=== PATIENT | male | born 1985 | race Caucasian/White ===

== ENCOUNTER 2018-12-03 08:31 | Emergency (ER) | payer OTHER ==
[2018-12-03 08:37] VITALS: BP 133/89; PULSE 84; RESP 18; TEMP 97.4
--- NOTE | 2018-12-03 08:47 | ED ---
Skin/Abscess/FB HPI - General Chief complaint: Skin/Abscess/Foreign Body Stated complaint: Poss Spider Bite Time Seen by Provider: 12/03/18 08:40 Source: patient Mode of arrival: ambulatory Limitations: no limitations - History of Present Illness Initial comments: 33-year-old male presenting for possible spider bite of the left ring finger. Patient states that yesterday he woke up with a appeared is insect bite of the left ring finger. He states are 2 small vasquez. He was concerned this was a spider. Patient states it has been appearing more red is concerned is infected. She denies any fusiform swelling denies any forced flexed positioning, pain on the palm or dorsum of hand, fevers, flu like symptoms. Patient states he is able to range at the digit without pain out of proportion. Patient denies history of MRSA. Remaining review of systems negative upon arrival patient appears well nontoxic no acute distress. - Related Data Previous Rx's Medication Instructions Recorded Azithromycin [Zithromax Tri-Giuseppe] 500 mg PO DAILY #3 tab 04/27/14 Cephalexin [Keflex] 500 mg PO Q6HR 7 Days #28 cap 12/03/18 Sulfamethox-Tmp 800-160Mg [Bactrim 1 tab PO Q12HR 7 Days #14 tab 12/03/18 DS 800-160 mg] Allergies Allergy/AdvReac Type Severity Reaction Status Date / Time No Known Allergies Allergy Verified 12/03/18 08:37 Review of Systems ROS Statement: Those systems with pertinent positive or pertinent negative responses have been documented in the HPI. ROS Other: All systems not noted in ROS Statement are negative. Past Medical History Past Medical History: No Reported History History of Any Multi-Drug Resistant Organisms: None Reported Additional Past Surgical History / Comment(s): left foot cyst removed Past Psychological History: No Psychological Hx Reported Smoking Status: Current every day smoker Past Alcohol Use History: Rare Past Drug Use History: Marijuana General Exam - General Exam Comments Initial Comments: General: The patient is awake and alert, in no distress, and does not appear acutely ill. Eye: Pupils are equal, round and reactive to light, extra-ocular movements are intact. No nystagmus. There is normal conjunctiva bilaterally. No signs of icterus. Cardiovascular: There is a regular rate and rhythm. No murmur, rub or gallop is appreciated. Respiratory: Lungs are clear to auscultation, respirations are non-labored, breath sounds are equal. No wheezes, stridor, rales, or rhonchi. Musculoskeletal: Upon inspection of the hands bilaterally there is small break in the skin with 2 small abrasions of the left ring finger proximal to the PIP joint. Mild surrounding redness. Tenderness in the area abscess no fusiform swelling was noted no force flexed positioning. Patient is able to extend and flex the digit without pain out of proportion. Discomfort when palpating the area of redness Strength 5/5. Sensation intact. Radial pulses equal bilaterally 2+. Neurological: A&O x 3. CN II-XII intact, There are no obvious motor or sensory deficits. Coordination appears grossly intact. Speech is normal. Skin: Skin is warm and dry and no rashes or lesions are noted. Psychiatric: Cooperative, appropriate mood & affect, normal judgment. Limitations: no limitations Course Vital Signs 12/03/18 08:35 Temperature 97.4 F L Pulse Rate 84 Respiratory 18 Rate Blood Pressure 133/89 O2 Sat by Pulse 99 Oximetry Medical Decision Making - Medical Decision Making 33-year-old male presents today for chief complaint of insect bite. No signs of purulent flexor tenosynovitis. There is evidence of possible developing cellulitis versus local reaction. Patient was given a prescription for Keflex instructed to take medication as directed. He was told to monitor the redness and we discussed the signs of tenosynovitis. Patient verbalized understanding importance of return parameters as well as adherence antibiotic regimen. Patient was discharged. Barry discussed the case with her provider Dr. Dolan Disposition Clinical Impression: Insect bite, Finger pain, left Disposition: HOME SELF-CARE Condition: Good Instructions (If sedation given, give patient instructions): Cellulitis (ED), Insect Bite or Sting (ED) Additional Instructions: Please use medication as discussed. Please follow-up with family doctor in the next 2 days of symptoms have not improved. Please return to emergency room if the symptoms increase or worsen or for any other concerns--increasing spreading of redness, sausage like finger and inability flex and extend finger fevers or flulike symptoms as discussed Prescriptions: Sulfamethox-Tmp 800-160Mg [Bactrim DS 800-160 mg] 1 tab PO Q12HR 7 Days #14 tab Cephalexin [Keflex] 500 mg PO Q6HR 7 Days #28 cap Is patient prescribed a controlled substance at d/c from ED?: No Referrals: Eric Valdez MD [STAFF PHYSICIAN] - 1-2 days Time of Disposition: 08:47
[2018-12-03] MEDS ORDERED: SULFAMETH-TMP DS STARTER PACK 2 TAB BTL PO STA (08:48)
[2018-12-03] MEDS ORDERED: CEPHALEXIN 500MG STARTER PACK 4 CAP BTL PO STA (08:48)
== END 2018-12-03 09:16 | disposition home or self-care (01) ==
LOC: EC 08:31
DX: S60.465A Insect bite (nonvenomous) of left ring finger, initial encounter (principal); S60.415A Abrasion of left ring finger, initial encounter; F17.200 Nicotine dependence, unspecified, uncomplicated; W57.XXXA Bitten or stung by nonvenomous insect and other nonvenomous arthropods, initial encounter
CPT/HCPCS: 99281

== ENCOUNTER 2020-01-19 13:32 | Emergency (ER) | payer OTHER ==
[2020-01-19 13:36] VITALS: BP 133/76; PULSE 65; RESP 18; TEMP 98.1
--- NOTE | 2020-01-19 14:15 | ED ---
General Adult HPI - General Chief complaint: Skin/Abscess/Foreign Body Stated complaint: Left hand swelling Time Seen by Provider: 01/19/20 13:55 Source: patient, RN notes reviewed, old records reviewed Mode of arrival: ambulatory Limitations: no limitations - History of Present Illness Initial comments: Patient is a 34-year-old male presents for short stay with chronic rash over bilateral hands. He reports this happened since he is 17. He reports that 2 days ago he noticed some swelling and a pimple formation on the left index finger. Patient reports that he popped this and clear fluid was removed. He reports some increased swelling and redness of the proximal joint at this time. Patient reports he's had this in the past and has been treated with antibiotics. Patient reports that he has had no recent fevers or chills. He does report full range of motion of the finger at this time. - Related Data Previous Rx's Medication Instructions Recorded Azithromycin [Zithromax Tri-Giuseppe] 500 mg PO DAILY #3 tab 04/27/14 Cephalexin [Keflex] 500 mg PO Q6HR 7 Days #28 cap 12/03/18 Sulfamethox-Tmp 800-160Mg [Bactrim 1 tab PO Q12HR 7 Days #14 tab 12/03/18 DS 800-160 mg] Cephalexin [Keflex] 500 mg PO Q6HR 10 Days #40 cap 01/19/20 Hydrocortisone [Hydrocortisone 1 applic TOPICAL DAILY #60 gram 01/19/20 0.5% Cream] Allergies Allergy/AdvReac Type Severity Reaction Status Date / Time codeine Allergy Itching Verified 01/19/20 13:36 Review of Systems ROS Statement: Those systems with pertinent positive or pertinent negative responses have been documented in the HPI. ROS Other: All systems not noted in ROS Statement are negative. Past Medical History Past Medical History: No Reported History History of Any Multi-Drug Resistant Organisms: None Reported Additional Past Surgical History / Comment(s): left foot cyst removed Past Psychological History: No Psychological Hx Reported Smoking Status: Current every day smoker Past Alcohol Use History: Rare Past Drug Use History: Marijuana General Exam - General Exam Comments Initial Comments: Alert and oriented 34-year-old male. No distress. Limitations: no limitations General appearance: alert, in no apparent distress Head exam: Present: atraumatic, normocephalic, normal inspection Eye exam: Present: normal appearance, PERRL, EOMI. Absent: scleral icterus, conjunctival injection, periorbital swelling ENT exam: Present: normal exam, mucous membranes moist Neck exam: Present: normal inspection. Absent: tenderness, meningismus, lymphadenopathy Respiratory exam: Present: normal lung sounds bilaterally. Absent: respiratory distress, wheezes, rales, rhonchi, stridor Cardiovascular Exam: Present: regular rate, normal rhythm, normal heart sounds. Absent: systolic murmur, diastolic murmur, rubs, gallop, clicks GI/Abdominal exam: Present: soft, normal bowel sounds. Absent: distended, tenderness, guarding, rebound, rigid Extremities exam: Present: normal inspection Left Upper Arm exam: Present: normal inspection, full ROM Elbow exam: Present: normal inspection, full ROM Forearm Wrist exam: Present: normal inspection, full ROM Hand Wrist exam: Present: tenderness (Patient has scaly rash over her palms of bilateral hands. Patient has some tenderness and swelling over the PIP of the left index..). Absent: normal inspection Neuro motor exam: Present: wrist extension intact, thumb opposition intact, thumb IP flexion intact, thumb adduction intact Back exam: Present: normal inspection Neurological exam: Present: alert, oriented X3, CN II-XII intact Course Vital Signs 01/19/20 13:34 Temperature 98.1 F Pulse Rate 65 Respiratory 18 Rate Blood Pressure 133/76 O2 Sat by Pulse 98 Oximetry Medical Decision Making - Medical Decision Making 34-year-old male presents with left index finger pain and swelling of bilateral rash over his hand. The Patient index finger pain and swelling for the past 2 days. Patient's has full range of motion is time. Discussed return at this time for drainage of no palpable fluctuant abscess as well as her for tenosynovitis. Discusses could develop into return if there is any severe pain with range of motion worsening redness swelling. We'll put the Patient on antibiotic of Keflex. I discussed also using a steroid cream over the chronic flaky scaly rash over bilateral palms of his hands consistent with likely psoriasis or eczema. Disposition Clinical Impression: Swelling of finger joint of left hand Disposition: HOME SELF-CARE Condition: Good Instructions (If sedation given, give patient instructions): Abscess (ED) Additional Instructions: Take the antibiotic as prescribed. Also recommended using the steroid cream over the irritated skin on bilateral hands. Patient can follow-up with a distribution associate and hand specialist. Return if there is any worsening pain with range of motion or redness and swelling to the finger after 2 days of antibiotic. Prescriptions: Hydrocortisone [Hydrocortisone 0.5% Cream] 1 applic TOPICAL DAILY #60 gram Cephalexin [Keflex] 500 mg PO Q6HR 10 Days #40 cap Is patient prescribed a controlled substance at d/c from ED?: No Referrals: Eric Valdez MD [Primary Care Provider] - 1-2 days Time of Disposition: 14:14
== END 2020-01-19 14:40 | disposition home or self-care (01) ==
LOC: EC 13:32
DX: M79.89 Other specified soft tissue disorders (principal); R21 Rash and other nonspecific skin eruption; F17.200 Nicotine dependence, unspecified, uncomplicated; Z88.5 Allergy status to narcotic agent
CPT/HCPCS: 99283

== ENCOUNTER 2020-02-03 11:30 | Emergency (ER) | payer OTHER ==
[2020-02-03 11:39] VITALS: TEMP 97.8
[2020-02-03] MEDS ORDERED: IBUPROFEN 600 MG TAB PO STA (12:11)
[2020-02-03] MEDS ORDERED: HYDROcodone/APAP 5-325MG 1 EACH TAB PO STA (12:11)
--- NOTE | 2020-02-03 12:56 | ED ---
Extremity Problem HPI - General Chief complaint: Extremity Problem,Nontraumatic Stated complaint: Knee pain Time Seen by Provider: 02/03/20 11:52 Source: patient, RN notes reviewed Mode of arrival: ambulatory Limitations: no limitations - History of Present Illness Initial comments: this a 34-year-old male presents emergency from chief complaint of left knee left foot pain. Patient states that he walked extensive amount yesterday states he woke up with increased swelling, pain. He has not taken anything for the discomfort. Patient states that he had prior surgery on his left foot for a cyst removal. Patient states that his pain is better at rest is with any movement. Denies any known injury no trauma no fevers or chills no erythema. - Related Data Previous Rx's Medication Instructions Recorded Ibuprofen [Motrin] 600 mg PO Q8HR PRN #20 tab 02/03/20 Allergies Allergy/AdvReac Type Severity Reaction Status Date / Time codeine Allergy Itching Verified 02/03/20 13:47 Review of Systems ROS Statement: Those systems with pertinent positive or pertinent negative responses have been documented in the HPI. ROS Other: All systems not noted in ROS Statement are negative. Past Medical History Past Medical History: No Reported History History of Any Multi-Drug Resistant Organisms: None Reported Additional Past Surgical History / Comment(s): left foot cyst removed Past Psychological History: No Psychological Hx Reported Smoking Status: Current every day smoker Past Alcohol Use History: Rare Past Drug Use History: Marijuana General Exam Limitations: no limitations General appearance: alert, in no apparent distress Head exam: Present: atraumatic, normocephalic, normal inspection Respiratory exam: Present: normal lung sounds bilaterally. Absent: respiratory distress, wheezes, rales, rhonchi, stridor Cardiovascular Exam: Present: regular rate, normal rhythm, normal heart sounds. Absent: systolic murmur, diastolic murmur, rubs, gallop, clicks Extremities exam: Present: other (left knee there is no erythema, swelling there is mild pain with range of motion no localized tenderness, no tib-fib tenderness there is proximal foot tenderness and swelling noted there is old surgical scar noted neurovascular intact) Neurological exam: Present: reflexes normal. Absent: motor sensory deficit Course Vital Signs 02/03/20 11:37 Temperature 97.8 F Pulse Rate 73 Respiratory 18 Rate Blood Pressure 122/73 O2 Sat by Pulse 98 Oximetry Medical Decision Making - Medical Decision Making x-rays reviewed no acute fracture. Patient has left foot tendinitis. Patient discharged in stable condition with anti-inflammatories return parameters were discussed. Disposition Clinical Impression: Tendinitis of left foot, Left knee pain Disposition: HOME SELF-CARE Condition: Stable Instructions (If sedation given, give patient instructions): Tendinitis (ED) Additional Instructions: Please return to the Emergency Department if symptoms worsen or any other concerns. Prescriptions: Ibuprofen [Motrin] 600 mg PO Q8HR PRN #20 tab PRN Reason: Pain Is patient prescribed a controlled substance at d/c from ED?: No Referrals: Eric Valdez MD [Primary Care Provider] - 1-2 days Time of Disposition: 13:50
--- NOTE | 2020-02-03 13:10 | XR ---
EXAMINATION TYPE: XR knee complete LT DATE OF EXAM: 02/03/2020 CLINICAL HISTORY: Pain after excessive walking. TECHNIQUE: Three views of the left knee are obtained. COMPARISON: None. FINDINGS: There is no acute fracture/dislocation evident in the knee. The tri-compartment joint spa arnulfo appear within normal limits. The overlying soft tissue appears unremarkable. IMPRESSION: As above.
--- NOTE | 2020-02-03 13:11 | XR ---
EXAMINATION TYPE: XR foot complete LT DATE OF EXAM: 02/03/2020 CLINICAL HISTORY: Pain after walking a lot yesterday. TECHNIQUE: Frontal, lateral, and oblique images of the left foot are obtained. COMPARISON: None FINDINGS: There is no acute fracture/dislocation evident in the left foot. From Flexion in the dist al second through fifth toes is present. The joint spaces in the left foot appear within normal limit s. The overlying soft tissue appears unremarkable. IMPRESSION: As above.
[2020-02-03 14:02] VITALS: BP 130/78; PULSE 64; RESP 16
== END 2020-02-03 14:01 | disposition home or self-care (01) ==
LOC: EC 11:30
DX: M77.8 Other enthesopathies, not elsewhere classified (principal); M25.562 Pain in left knee; F17.200 Nicotine dependence, unspecified, uncomplicated; Z88.5 Allergy status to narcotic agent
CPT/HCPCS: 99283

== ENCOUNTER 2021-03-11 12:58 | Emergency (ER) | payer OTHER ==
[2021-03-11] MEDS ORDERED: SODIUM CHLORIDE 0.9% 1,000 ML IV STA (13:48)
--- NOTE | 2021-03-11 13:57 | ED ---
General Adult HPI - General Chief complaint: Chest Pain Stated complaint: Hands shaking, wants ekg Time Seen by Provider: 03/11/21 13:33 Source: patient, RN notes reviewed Mode of arrival: ambulatory Limitations: no limitations - History of Present Illness Initial comments: 35-year-old male presents to the emergency department for evaluation of chest pa in, onset this morning. Patient states when he awoke around noon today he had numbness and shaking in his hands, then noticed a discomfort in the left side of his chest. Patient states he had a similar episode 4 days ago and was seen at another facility where he had a full workup. Patient states there were no abnormal findings in his previous workup, however patient is worried something was missed. States he has a family member that had a heart attack at a young age. When discussing overall health and wellness, patient acknowledges excessive caffeine intake and poor sleep patterns. Reports increased stress over the last 6 months. Denies headache, dizziness, diaphoresis, shortness of b reath, abdominal pain, nausea, vomiting, and dysuria. - Related Data Home Medications Medication Instructions Recorded Confirmed No Known Home Medications 03/11/21 03/11/21 Allergies Allergy/AdvReac Type Severity Reaction Status Date / Time codeine Allergy Itching Verified 03/11/21 14:31 Review of Systems ROS Statement: Those systems with pertinent positive or pertinent negative responses have been documented in the HPI. ROS Other: All systems not noted in ROS Statement are negative. Past Medical History Past Medical History: No Reported History History of Any Multi-Drug Resistant Organisms: None Reported Additional Past Surgical History / Comment(s): left foot cyst removed Past Psychological History: No Psychological Hx Reported Smoking Status: Current every day smoker Past Alcohol Use History: Rare Past Drug Use History: Marijuana General Exam Limitations: no limitations (Well-developed, well-nourished male in no acute distress. Initial temperature 98.1, pulse 99, respirations 18, blood pressure 137/100, pulse ox 98% on room air.) General appearance: alert, in no apparent distress Eye exam: Present: normal appearance, PERRL, EOMI. Absent: scleral icterus, conjunctival injection ENT exam: Present: normal exam, normal oropharynx, mucous membranes moist Neck exam: Present: normal inspection. Absent: tenderness, meningismus, lymphadenopathy Respiratory exam: Present: normal lung sounds bilaterally. Absent: respiratory distress, wheezes, rales, rhonchi, stridor Cardiovascular Exam: Present: regular rate, normal rhythm, normal heart sounds. Absent: systolic murmur, diastolic murmur, rubs, gallop, clicks GI/Abdominal exam: Present: soft, normal bowel sounds. Absent: distended, tenderness, guarding, rebound, rigid Extremities exam: Present: normal inspection, full ROM, normal capillary refill. Absent: tenderness, pedal edema, joint swelling, calf tenderness Neurological exam: Present: alert, oriented X3, CN II-XII intact Expanded Patient oriented to: Present: person, place, time Speech: Present: fluid speech Cranial nerves: EOM's Intact: Normal Motor strength exam: RUE: 5, LUE: 5, RLE: 5, LLE: 5 Eye Response: (4) open spontaneously Motor Response: (6) obeys commands Verbal Response: (5) oriented [place] Total: 15 Psychiatric exam: Present: normal affect, normal mood Skin exam: Present: warm, dry, intact, normal color. Absent: rash Course Vital Signs 03/11/21 03/11/21 03/11/21 13:10 15:08 16:48 Temperature 98.1 F Pulse Rate 99 66 Pulse Rate [ 63 Sitting Qa Tester] Respiratory 18 18 Rate Blood Pressure 137/100 126/82 O2 Sat by Pulse 98 97 Oximetry 03/11/21 18:39 Temperature 98.0 F Pulse Rate 73 Pulse Rate [ Sitting Qa Tester] Respiratory 16 Rate Blood Pressure 127/79 O2 Sat by Pulse 98 Oximetry Medical Decision Making - Medical Decision Making This is a 35-year-old male with no past medical history who presents to the emergency department for evaluation of numbness and shaking in his hands which was accompanied by a brief episode of left-sided chest pain. Upon exam, patient's symptoms have resolved and he is well appearing and in no acute distress. Vital signs are stable; he is afebrile, not tachycardic, nor tachypneic. Discussed several concerning lifestyle choices including excessive caffeine intake and poor sleep habits. Patient verbalizes cardiac concern and was agreeable to the workup. IV access was obtained and patient was given a liter of fluids. Laboratory studies were reviewed. Leukocytosis is felt to be reactive versus infectious. Troponin and d-dimer are both negative. Urinalysis is positive for 3+ ketones. EKG did show some nonspecific changes with no concerning findings. Results were reviewed with patient and family at bedside. Stressed the importance of implementing lifestyle changes. Encouraged to establish with primary care provider. Strict return parameters were discussed in detail. Patient verbalizes readiness for discharge stating he is feeling much better. This patient's care was discussed with my attending Dr. Lindsay. - Lab Data Result diagrams: 03/11/21 14:12 03/11/21 14:12 Lab Results 03/11/21 03/11/21 03/11/21 Range/Units 14:12 14:12 14:12 WBC 16.9 H (3.8-10.6) k/uL RBC 4.94 (4.30-5.90) m/uL Hgb 16.0 (13.0-17.5) gm/dL Hct 47.1 (39.0-53.0) % MCV 95.3 (80.0-100.0) fL MCH 32.4 (25.0-35.0) pg MCHC 34.0 (31.0-37.0) g/dL RDW 11.7 (11.5-15.5) % Plt Count 369 (150-450) k/uL MPV 7.9 Neutrophils % 85 % Lymphocytes % 8 % Monocytes % 5 % Eosinophils % 1 % Basophils % 0 % Neutrophils # 14.3 H (1.3-7.7) k/uL Lymphocytes # 1.4 (1.0-4.8) k/uL Monocytes # 0.8 (0-1.0) k/uL Eosinophils # 0.2 (0-0.7) k/uL Basophils # 0.0 (0-0.2) k/uL PT 11.1 (9.0-12.0) sec INR 1.0 (<1.2) APTT 27.4 (22.0-30.0) sec D-Dimer <0.17 (<0.60) mg/L FEU Sodium 139 (137-145) mmol/L Potassium 4.0 (3.5-5.1) mmol/L Chloride 105 (98-107) mmol/L Carbon Dioxide 23 (22-30) mmol/L Anion Gap 11 mmol/L BUN 13 (9-20) mg/dL Creatinine 0.76 (0.66-1.25) mg/dL Est GFR (CKD-EPI)AfAm >90 (>60 ml/min/1.73 sqM) Est GFR (CKD-EPI)NonAf >90 (>60 ml/min/1.73 sqM) Glucose 104 H (74-99) mg/dL Calcium 9.8 (8.4-10.2) mg/dL Magnesium 2.0 (1.6-2.3) mg/dL Total Bilirubin 0.7 (0.2-1.3) mg/dL AST 21 (17-59) U/L ALT 11 (4-49) U/L Alkaline Phosphatase 99 (38-126) U/L Troponin I (0.000-0.034) ng/mL Total Protein 7.7 (6.3-8.2) g/dL Albumin 4.8 (3.5-5.0) g/dL Urine Color Urine Appearance (Clear) Urine pH (5.0-8.0) Ur Specific [place] (1.001-1.035) Urine Protein (Negative) Urine Glucose (UA) (Negative) Urine Ketones (Negative) Urine Blood (Negative) Urine Nitrite (Negative) Urine Bilirubin (Negative) Urine Urobilinogen (<2.0) mg/dL Ur Leukocyte Esterase (Negative) 03/11/21 03/11/21 Range/Units 14:12 16:49 WBC (3.8-10.6) k/uL RBC (4.30-5.90) m/uL Hgb (13.0-17.5) gm/dL Hct (39.0-53.0) % MCV (80.0-100.0) fL MCH (25.0-35.0) pg MCHC (31.0-37.0) g/dL RDW (11.5-15.5) % Plt Count (150-450) k/uL MPV Neutrophils % % Lymphocytes % % Monocytes % % Eosinophils % % Basophils % % Neutrophils # (1.3-7.7) k/uL Lymphocytes # (1.0-4.8) k/uL Monocytes # (0-1.0) k/uL Eosinophils # (0-0.7) k/uL Basophils # (0-0.2) k/uL PT (9.0-12.0) sec INR (<1.2) APTT (22.0-30.0) sec D-Dimer (<0.60) mg/L FEU Sodium (137-145) mmol/L Potassium (3.5-5.1) mmol/L Chloride (98-107) mmol/L Carbon Dioxide (22-30) mmol/L Anion Gap mmol/L BUN (9-20) mg/dL Creatinine (0.66-1.25) mg/dL Est GFR (CKD-EPI)AfAm (>60 ml/min/1.73 sqM) Est GFR (CKD-EPI)NonAf (>60 ml/min/1.73 sqM) Glucose (74-99) mg/dL Calcium (8.4-10.2) mg/dL Magnesium (1.6-2.3) mg/dL Total Bilirubin (0.2-1.3) mg/dL AST (17-59) U/L ALT (4-49) U/L Alkaline Phosphatase (38-126) U/L Troponin I <0.012 (0.000-0.034) ng/mL Total Protein (6.3-8.2) g/dL Albumin (3.5-5.0) g/dL Urine Color Yellow Urine Appearance Clear (Clear) Urine pH 5.5 (5.0-8.0) Ur Specific [place] 1.020 (1.001-1.035) Urine Protein Negative (Negative) Urine Glucose (UA) Negative (Negative) Urine Ketones 3+ H (Negative) Urine Blood Negative (Negative) Urine Nitrite Negative (Negative) Urine Bilirubin Negative (Negative) Urine Urobilinogen <2.0 (<2.0) mg/dL Ur Leukocyte Esterase Negative (Negative) - EKG Data EKG shows normal: sinus rhythm Rate: normal EKG Comments: EKG was obtained at 1318 and shows normal sinus rhythm. Ventricular rate 91, CT intervals 136, QRS duration 86, QT/QTC 348/428. Interpretation is abnormal EKG. - Radiology Data Radiology results: report reviewed, image reviewed Two-view chest x-ray was obtained. Report was reviewed in its entirety. Impression per Dr. Galarza is normal chest. Disposition Clinical Impression: Ketonuria, Nonspecific chest pain Disposition: HOME SELF-CARE Condition: Stable Instructions (If sedation given, give patient instructions): Chest Pain (ED), Dehydration (ED), Heart Healthy Diet (ED) Additional Instructions: Increase intake of water. Cut caffeine intake in half. Work on developing a normal sleep pattern. Establish with primary care provider. Return to the emergency department with any new, worsening, or concerning symptoms as we discussed. Is patient prescribed a controlled substance at d/c from ED?: No Referrals: None,Stated [Primary Care Provider] - 1-2 days Time of Disposition: 18:26
--- NOTE | 2021-03-11 14:44 | XR ---
EXAMINATION TYPE: XR chest 2V DATE OF EXAM: 03/11/2021 COMPARISON: NONE HISTORY: Chest pain TECHNIQUE: 2 views FINDINGS: Heart and mediastinum are normal. Lungs are clear. Diaphragm is normal. Bony thorax is inta ct. IMPRESSION: Normal chest.
[2021-03-11 14:59] LABS: Basophils % (A) 0 %; Eosinophils # (A) 0.2 k/uL (0-0.7); Eosinophils % (A) 1 %; HCT 47.1 % (39.0-53.0); Lymphocytes # (A) 1.4 k/uL (1.0-4.8); Lymphocytes % (A) 8 %; MCH 32.4 pg (25.0-35.0); MCV 95.3 fL (80.0-100.0); Mean Platelet Volume 7.9; Monocytes # (A) 0.8 k/uL (0-1.0); Monocytes % (A) 5 %; Neutrophils # (A) 14.3 k/uL (1.3-7.7); Neutrophils % (A) 85 %; Platelet Count 369 k/uL (150-450); RBC 4.94 m/uL (4.30-5.90); RDW 11.7 % (11.5-15.5); WBC 16.9 k/uL (3.8-10.6)
[2021-03-11 15:09] LABS: ALT 11 U/L (4-49); AST 21 U/L (17-59); African American GFR (CKD) >90 (>60 ml/min/1.73 sqM); Albumin 4.8 g/dL (3.5-5.0); Alkaline Phosphatase 99 U/L (38-126); Anion Gap 11 mmol/L; Blood Urea Nitrogen 13 mg/dL (9-20); Calcium 9.8 mg/dL (8.4-10.2); Carbon Dioxide 23 mmol/L (22-30); Chloride 105 mmol/L (98-107); Glucose 104 mg/dL (74-99); Non-African American GFR(CKD) >90 (>60 ml/min/1.73 sqM); Sodium 139 mmol/L (137-145); Total Bilirubin 0.7 mg/dL (0.2-1.3); Total Protein 7.7 g/dL (6.3-8.2)
[2021-03-11 15:12] LABS: Partial Thromboplastin Time 27.4 sec (22.0-30.0); Prothrombin Time 11.1 sec (9.0-12.0)
[2021-03-11 17:10] LABS: Appearance,Urine Clear (Clear); Bilirubin,Urine Negative (Negative); Blood,Urine Negative (Negative); Color,Urine Yellow; Glucose,Urine (UA) Negative (Negative); Ketones,Urine 3+ (Negative); Leukocyte Esterase,Urine Negative (Negative); Nitrite,Urine Negative (Negative); PH, Urine 5.5 (5.0-8.0); Protein,Urine Negative (Negative); Urobilinogen,Urine <2.0 mg/dL (<2.0)
[2021-03-11 18:40] VITALS: BP 127/79; PULSE 73; RESP 16; TEMP 98
== END 2021-03-11 18:45 | disposition home or self-care (01) ==
LOC: EC 12:58
DX: R07.9 Chest pain, unspecified (principal); R82.4 Acetonuria; F17.200 Nicotine dependence, unspecified, uncomplicated; F12.90 Cannabis use, unspecified, uncomplicated; Z72.89 Other problems related to lifestyle
CPT/HCPCS: 36415; 71046; 80053; 81003; 83735; 84484; 85025; 85379; 85610; 85730; 93005

== ENCOUNTER 2021-03-14 15:29 | Emergency (ER) | payer OTHER ==
[2021-03-14 16:04] VITALS: TEMP 98.5
[2021-03-14 16:22] LABS: Basophils % (A) 0 %; Eosinophils # (A) 0.2 k/uL (0-0.7); Eosinophils % (A) 1 %; HCT 48.4 % (39.0-53.0); HGB 16.3 gm/dL (13.0-17.5); Lymphocytes # (A) 1.8 k/uL (1.0-4.8); Lymphocytes % (A) 11 %; MCH 32.5 pg (25.0-35.0); MCHC 33.7 g/dL (31.0-37.0); MCV 96.4 fL (80.0-100.0); Mean Platelet Volume 7.9; Monocytes # (A) 0.8 k/uL (0-1.0); Monocytes % (A) 5 %; Neutrophils # (A) 13.1 k/uL (1.3-7.7); Neutrophils % (A) 81 %; Platelet Count 391 k/uL (150-450); RBC 5.02 m/uL (4.30-5.90); RDW 12.4 % (11.5-15.5); WBC 16.1 k/uL (3.8-10.6)
[2021-03-14 16:31] LABS: INR 1.1 (<1.2); Partial Thromboplastin Time 27.3 sec (22.0-30.0); Prothrombin Time 11.5 sec (9.0-12.0)
[2021-03-14 16:33] LABS: ALT 11 U/L (4-49); AST 21 U/L (17-59); African American GFR (CKD) >90 (>60 ml/min/1.73 sqM); Albumin 4.9 g/dL (3.5-5.0); Alkaline Phosphatase 99 U/L (38-126); Anion Gap 9 mmol/L; Blood Urea Nitrogen 12 mg/dL (9-20); Calcium 9.9 mg/dL (8.4-10.2); Carbon Dioxide 23 mmol/L (22-30); Chloride 104 mmol/L (98-107); Glucose 103 mg/dL (74-99); Non-African American GFR(CKD) >90 (>60 ml/min/1.73 sqM); Potassium 4.1 mmol/L (3.5-5.1); Sodium 136 mmol/L (137-145); Total Bilirubin 0.8 mg/dL (0.2-1.3); Total Protein 7.9 g/dL (6.3-8.2)
--- NOTE | 2021-03-14 17:34 | XR ---
EXAMINATION TYPE: XR chest 2V DATE OF EXAM: 03/14/2021 COMPARISON: 03/11/2021 HISTORY: Chest pain TECHNIQUE: FINDINGS: Heart and mediastinum are normal. Lungs are clear. Diaphragm is normal. Bony thorax is inta ct. IMPRESSION: Normal chest. No change.
[2021-03-14] MEDS ORDERED: AMOXIC-POT CLAV 875MG STARTER PACK 2 TAB BTL PO STA (18:49)
--- NOTE | 2021-03-14 18:52 | ED ---
General Adult HPI - General Chief complaint: Chest Pain Stated complaint: Chest pain Time Seen by Provider: 03/14/21 18:30 Source: patient Mode of arrival: ambulatory Limitations: no limitations - History of Present Illness Initial comments: 35 year-old male patient presents for evaluation of a squeezing sensation in his chest. Patient states that it has been going on for the last 3-4 days. State he was seen here a few days ago. He denies any shortness of breath. Denies nausea or vomiting. States his hands have been feeling clammy and sweaty as well. He states he was diagnosed with dehydration last time but has been drinking a lot of water. He denies fever or chills. Denies cough or congestion. He does report right sided dental pain and is scheduled to have his teeth removed on Apr 09. Patient denies any recent rash, abdominal pain, diarrhea, constipation, back pain, numbness, tingling, dizziness, weakness, hematuria, dysuria, urinary urge ncy, urinary frequency, headache, visual changes, or any other complaints. - Related Data Previous Rx's Medication Instructions Recorded Amoxic-Pot Clav 875-125Mg 1 tab PO Q12HR #20 tablet 03/14/21 [Augmentin 875-125] Allergies Allergy/AdvReac Type Severity Reaction Status Date / Time codeine Allergy Itching Verified 03/14/21 16:02 Review of Systems ROS Statement: Those systems with pertinent positive or pertinent negative responses have been documented in the HPI. ROS Other: All systems not noted in ROS Statement are negative. Past Medical History Past Medical History: No Reported History History of Any Multi-Drug Resistant Organisms: None Reported Past Surgical History: No Surgical Hx Reported Additional Past Surgical History / Comment(s): left foot cyst removed Past Psychological History: No Psychological Hx Reported Smoking Status: Current every day smoker Past Alcohol Use History: Rare Past Drug Use History: Marijuana General Exam Limitations: no limitations Course Vital Signs 03/14/21 03/14/21 16:02 19:00 Temperature 98.5 F Pulse Rate 83 70 Respiratory 20 16 Rate Blood Pressure 117/86 115/72 O2 Sat by Pulse 98 96 Oximetry Medical Decision Making - Medical Decision Making 35-year-old male patient presented to the emergency department today for evaluation of squeezing chest pain and hands. White blood cell count at 16.1. Neutrophils 13.1. Sodium 136. Glucose 103. Chest x-ray negative. EKG is unremarkable. He did have dental pain as well. We'll treat for dental infection. He has follow-up appointment with dentist on 117. He is following up with a new primary care physician. Return parameters were discussed in detail. He verbalizes understanding and agrees with this plan. My attending is Dr. Lindsay. - Lab Data Result diagrams: 03/14/21 16:13 03/14/21 16:13 Lab Results 03/14/21 03/14/21 03/14/21 Range/Units 16:13 16:13 16:13 WBC 16.1 H (3.8-10.6) k/uL RBC 5.02 (4.30-5.90) m/uL Hgb 16.3 (13.0-17.5) gm/dL Hct 48.4 (39.0-53.0) % MCV 96.4 (80.0-100.0) fL MCH 32.5 (25.0-35.0) pg MCHC 33.7 (31.0-37.0) g/dL RDW 12.4 (11.5-15.5) % Plt Count 391 (150-450) k/uL MPV 7.9 Neutrophils % 81 % Lymphocytes % 11 % Monocytes % 5 % Eosinophils % 1 % Basophils % 0 % Neutrophils # 13.1 H (1.3-7.7) k/uL Lymphocytes # 1.8 (1.0-4.8) k/uL Monocytes # 0.8 (0-1.0) k/uL Eosinophils # 0.2 (0-0.7) k/uL Basophils # 0.0 (0-0.2) k/uL PT 11.5 (9.0-12.0) sec INR 1.1 (<1.2) APTT 27.3 (22.0-30.0) sec Sodium 136 L (137-145) mmol/L Potassium 4.1 (3.5-5.1) mmol/L Chloride 104 (98-107) mmol/L Carbon Dioxide 23 (22-30) mmol/L Anion Gap 9 mmol/L BUN 12 (9-20) mg/dL Creatinine 0.80 (0.66-1.25) mg/dL Est GFR (CKD-EPI)AfAm >90 (>60 ml/min/1.73 sqM) Est GFR (CKD-EPI)NonAf >90 (>60 ml/min/1.73 sqM) Glucose 103 H (74-99) mg/dL Calcium 9.9 (8.4-10.2) mg/dL Magnesium 2.0 (1.6-2.3) mg/dL Total Bilirubin 0.8 (0.2-1.3) mg/dL AST 21 (17-59) U/L ALT 11 (4-49) U/L Alkaline Phosphatase 99 (38-126) U/L Troponin I (0.000-0.034) ng/mL Total Protein 7.9 (6.3-8.2) g/dL Albumin 4.9 (3.5-5.0) g/dL 03/14/21 Range/Units 16:13 WBC (3.8-10.6) k/uL RBC (4.30-5.90) m/uL Hgb (13.0-17.5) gm/dL Hct (39.0-53.0) % MCV (80.0-100.0) fL MCH (25.0-35.0) pg MCHC (31.0-37.0) g/dL RDW (11.5-15.5) % Plt Count (150-450) k/uL MPV Neutrophils % % Lymphocytes % % Monocytes % % Eosinophils % % Basophils % % Neutrophils # (1.3-7.7) k/uL Lymphocytes # (1.0-4.8) k/uL Monocytes # (0-1.0) k/uL Eosinophils # (0-0.7) k/uL Basophils # (0-0.2) k/uL PT (9.0-12.0) sec INR (<1.2) APTT (22.0-30.0) sec Sodium (137-145) mmol/L Potassium (3.5-5.1) mmol/L Chloride (98-107) mmol/L Carbon Dioxide (22-30) mmol/L Anion Gap mmol/L BUN (9-20) mg/dL Creatinine (0.66-1.25) mg/dL Est GFR (CKD-EPI)AfAm (>60 ml/min/1.73 sqM) Est GFR (CKD-EPI)NonAf (>60 ml/min/1.73 sqM) Glucose (74-99) mg/dL Calcium (8.4-10.2) mg/dL Magnesium (1.6-2.3) mg/dL Total Bilirubin (0.2-1.3) mg/dL AST (17-59) U/L ALT (4-49) U/L Alkaline Phosphatase (38-126) U/L Troponin I <0.012 (0.000-0.034) ng/mL Total Protein (6.3-8.2) g/dL Albumin (3.5-5.0) g/dL - Radiology Data Radiology results: report reviewed, image reviewed 2 views of the chest are obtained. There were reviewed in its entirety. Im pression by Dr. Ruano shows normal chest. No change. Disposition Clinical Impression: Chest pain, Dental infection Disposition: HOME SELF-CARE Condition: Good Instructions (If sedation given, give patient instructions): Chest Pain (ED), Toothache (ED) Additional Instructions: Complete antibiotic prescription in full. Tylenol Motrin for pain control. Follow-up the primary care physician for recheck in 1-2 days. Return for any new, worsening, or concerning symptoms. Prescriptions: Amoxic-Pot Clav 875-125Mg [Augmentin 875-125] 1 tab PO Q12HR #20 tablet Is patient prescribed a controlled substance at d/c from ED?: No Referrals: None,Stated [Primary Care Provider] - 1-2 days Time of Disposition: 18:52
[2021-03-14 19:01] VITALS: BP 115/72; PULSE 70; RESP 16
== END 2021-03-14 19:00 | disposition home or self-care (01) ==
LOC: EC 15:29
DX: R07.9 Chest pain, unspecified (principal); K04.7 Periapical abscess without sinus; F17.200 Nicotine dependence, unspecified, uncomplicated; F12.90 Cannabis use, unspecified, uncomplicated; Z72.89 Other problems related to lifestyle
CPT/HCPCS: 36415; 71046; 80053; 83735; 84484; 85025; 85610; 85730; 93005; 99285